=== PATIENT | male | born 1965 | race Caucasian/White ===

== ENCOUNTER 2019-04-01 18:14 | Emergency (ER) | payer MEDICAID ==
[~2019-04-01] VITALS: Ht 170.2 cm; Wt 57.2 kg
[2019-04-01 18:57] VITALS: BP 147/93
[2019-04-01] MEDS ORDERED: ACETAMINOPHEN EXTRA STRENGTH 500 MG TAB PO ONE (19:00)
[2019-04-01] MEDS ORDERED: DICYCLOMINE HCL LIQUID 20 MG, ALUMINUM HYD/MAG/SIMETHICONE 30 ML, LIDOCAINE VISCOUS 2% ... PO ONE ×3 (19:25)
[2019-04-01] MEDS ORDERED: DICYCLOMINE HCL LIQUID 10 MG/5 ML UDC ONE (19:57)
[2019-04-01] MEDS ORDERED: LIDOCAINE VISCOUS 2% 20 ML UDC ONE (19:57)
[2019-04-01] MEDS ORDERED: ALUMINUM HYD/MAG/SIMETHICONE 30 ML UDC ONE (19:57)
--- NOTE | 2019-04-01 20:04 | NUR ---
C/O EPIGASTRIC PAIN X YESTERDAY. RATES PAIN 10/10 AND DECSRIBES IT BURNING. ABD IS ROUND, SOFT, TNENDERNESS TO TOUCH ON EPIGASTRIC REGION. VSS. VOMITTING (5X), DIARRHEA. A & O X4. PT ALSO STATES HE BODY ACHES. NKA. NO PMH.
[2019-04-01 20:38] LABS: BASOPHILS # (AUTO) 0.1 K/uL (0.00-0.22); BASOPHILS % (AUTO) 0.9 % (0.0-2.0); HEMATOCRIT 45.4 % (36-52); HEMOGLOBIN 15.2 g/dL (12.0-18.0); LYMPHOCYTES # (AUTO) 1.1 K/uL (2.0-11.5); LYMPHOCYTES % (AUTO) 17.6 % (20.5-51.1); MEAN CORPUSCULAR HEMOGLOBIN 32 pg (27-31); MEAN CORPUSCULAR HGB CONC 34 g/dL (33-37); MEAN CORPUSCULAR VOLUME 95.9 fL (80-94); MONOCYTES # (AUTO) 0.6 K/uL (0.8-1.0); MONOCYTES % (AUTO) 8.6 % (1.7-9.3); NEUTROPHILS # (AUTO) 4.6 K/uL (1.8-7.7); NEUTROPHILS % (AUTO) 72.9 % (42.2-75.2); PLATELET COUNT (AUTO) 289 K/uL (140-450); RED BLOOD CELL COUNT(AUTO) 4.73 MIL/uL (4.20-6.10); RED CELL DISTRIBUTION WIDTH 12.9 % (11.6-13.7); WHITE BLOOD COUNT (AUTO) 6.4 K/uL (4.8-10.8)
[2019-04-01 20:51] LABS: BARBITURATE, URINE NEG. ng/ml (NEG <=200); BENZODIAZEPINE, URINE NEG. ng/mL (NEG <=200); CANNABINOID, URINE NEG. ng/mL (NEG <=50); COCAINE, URINE NEG. ng/mL (NEG <=300); OPIATE, URINE NEG. ng/mL (NEG <=2000); PHENCYCLIDINE SCREEN,URINE NEG. ng/mL (NEG <=25)
[2019-04-01 20:51] LABS: ALBUMIN 4.1 g/dL (3.4-5.0); ANION GAP 12.3 (8-16); CARBON DIOXIDE 23.5 mmol/L (21-32); CREATININE 0.9 mg/dL (0.6-1.3); POTASSIUM 3.8 mmol/L (3.5-5.1); TOTAL BILIRUBIN 1.3 mg/dL (0.0-1.0)
[2019-04-01 21:29] VITALS: BP_SYST 147
[2019-04-01 21:30] VITALS: BP_DIAS 93
--- NOTE | 2019-04-01 21:30 | NUR ---
Patient discharged with v/s stable. Written and verbal after care instructions ABOUT ABDOMINAL PAIN AND DIET FOR PEPTIC ULCER DISEASE given and explained. Patient alert, oriented and verbalized understanding of instructions. Ambulatory with steady gait. All questions addressed prior to discharge. ID band removed. Patient advised to follow up with PMD. Rx of MYLANTA given. Patient educated on indication of medication including possible reaction and side effects. Opportunity to ask questions provided and answered.
== END 2019-04-01 21:30 | disposition home or self-care (01) ==
LOC: MED 18:14
DX: R10.9 Unspecified abdominal pain (principal); R11.2 Nausea with vomiting, unspecified; R19.7 Diarrhea, unspecified; F17.210 Nicotine dependence, cigarettes, uncomplicated; Z86.73 Personal history of transient ischemic attack (TIA), and cerebral infarction without residual deficits; Z71.6 Tobacco abuse counseling
CPT/HCPCS: 36415; 80053; 80305; 83690; 85025; 99283

== ENCOUNTER 2019-04-03 16:33 | Emergency (ER) | payer MEDICAID ==
[~2019-04-03] VITALS: Ht 170.2 cm; Wt 59.4 kg
[2019-04-03 16:40] VITALS: BP 148/111
--- NOTE | 2019-04-03 16:44 | NUR ---
PATIENT AMBULATED WITH STEADY GAIT TO BED 3.
[2019-04-03] MEDS ORDERED: NACL 0.9% 1,000 ML IV SCH (16:50)
[2019-04-03] MEDS ORDERED: ONDANSETRON 4 MG/2 ML VIAL IVP ONE (16:50)
--- NOTE | 2019-04-03 17:15 | NUR ---
54 Y/O MALE PRESENTS WITH EPIGASTRIC PAIN, N/V/D X3 DAYS. PATIENT CAME TO ER 2 DAYS AGO WITH SYMPTOMS, GIVEN GI COCKTAIL, AND SYMPTOMS PROGRESSED ONCE PATIENT RETURNED HOME. 12/03 EPIGASTRIC PAIN ACCOMPANIED WITH N/V/D. PATIENT COMPLAINS OF CHILLS AND FEVER. NO FEVER PRESENT AT THIS TIME. BOWEL SOUNDS NORMOACTIVE IN ALL QUADRANTS. CAP REFILL <3. AAOX4. RESP EVEN AND UNLABORED. PT DENIES ANY SOB/CP. VSS. NKA
[2019-04-03 17:35] LABS: BASOPHILS % (AUTO) 0.7 % (0.0-2.0); EOSINOPHILS % (AUTO) 0.6 % (0.0-4.0); HEMATOCRIT 44.5 % (36-52); HEMOGLOBIN 14.9 g/dL (12.0-18.0); LYMPHOCYTES # (AUTO) 1.3 K/uL (2.0-11.5); LYMPHOCYTES % (AUTO) 23.1 % (20.5-51.1); MEAN CORPUSCULAR HEMOGLOBIN 32 pg (27-31); MEAN CORPUSCULAR HGB CONC 33 g/dL (33-37); MEAN CORPUSCULAR VOLUME 95.5 fL (80-94); MONOCYTES # (AUTO) 0.6 K/uL (0.8-1.0); MONOCYTES % (AUTO) 10.2 % (1.7-9.3); NEUTROPHILS # (AUTO) 3.7 K/uL (1.8-7.7); NEUTROPHILS % (AUTO) 65.4 % (42.2-75.2); PLATELET COUNT (AUTO) 246 K/uL (140-450); RED BLOOD CELL COUNT(AUTO) 4.66 MIL/uL (4.20-6.10); RED CELL DISTRIBUTION WIDTH 12.8 % (11.6-13.7); WHITE BLOOD COUNT (AUTO) 5.6 K/uL (4.8-10.8)
[2019-04-03 17:52] LABS: PROTHROMBIN TIME 10.4 secs (10.8-13.4)
[2019-04-03 18:03] LABS: ALBUMIN 3.9 g/dL (3.4-5.0); ANION GAP 13.4 (8-16); CARBON DIOXIDE 24.1 mmol/L (21-32); CREATININE 0.8 mg/dL (0.6-1.3); POTASSIUM 3.5 mmol/L (3.5-5.1)
[2019-04-03 18:23] LABS: APPEARANCE,URINE CLEAR (CLEAR); BILIRUBIN,URINE NEGATIVE (NEGATIVE); BLOOD, URINE NEGATIVE (NEGATIVE); COLOR,URINE YELLOW (YELLOW); LEUKOCYTE ESTERASE ,URINE NEGATIVE (NEGATIVE); NITRITE, URINE NEGATIVE (NEGATIVE); UGLUCOSE NEGATIVE (NEGATIVE)
[2019-04-03] MEDS ORDERED: NACL 0.9% 1,000 ML IV ONE (18:25)
[2019-04-03 18:47] VITALS: BP 148/111
--- NOTE | 2019-04-03 18:48 | NUR ---
Patient discharged with v/s stable. Written and verbal after care instructions given and explained. Patient alert, oriented and verbalized understanding of instructions. Ambulatory with steady gait. All questions addressed prior to discharge. ID band removed. Patient advised to follow up with PMD. Rx of AMBIEN, MIRALAX, ZOFRAN, MINERAL OIL given. Patient educated on indication of medication including possible reaction and side effects. Opportunity to ask questions provided and answered.
== END 2019-04-03 18:48 | disposition home or self-care (01) ==
LOC: MED 16:33
DX: K59.00 Constipation, unspecified (principal); R11.2 Nausea with vomiting, unspecified; Z86.73 Personal history of transient ischemic attack (TIA), and cerebral infarction without residual deficits
CPT/HCPCS: 36415; 70450; 71045; 74176; 80053; 81003; 83605; 83880; 84484; 85025; 85610; 85730; 87040; 87086; 93005; 96361; 96374; 99284; J2405; Q0092; J7030

== ENCOUNTER 2020-01-06 06:10 | Emergency (ER) | payer MEDICAID ==
[~2020-01-06] VITALS: Ht 167.6 cm; Wt 57.2 kg
[2020-01-06 06:23] VITALS: BP 113/82
--- NOTE | 2020-01-06 06:59 | NUR ---
PT TAKEN TO XRAY VIA WHEELCHAIR.
--- NOTE | 2020-01-06 07:07 | NUR ---
PT BACK FROM CT VIA WHEELCHAIR.
--- NOTE | 2020-01-06 07:19 | NUR ---
REPORT GIVEN TO CHAVA HAWTHORNE FOR CONTINUITY OF CARE.
[2020-01-06] MEDS ORDERED: NACL 0.9% 1,000 ML IV ONE (07:35)
--- NOTE | 2020-01-06 07:55 | NUR ---
CONSENT SIGNED FOR CT WITH CONTRAST
--- NOTE | 2020-01-06 07:57 | NUR ---
PT WITH POOR VENOUS ACCESS. "I HAVE NO VEINS. I LAST USED THIS MORNING AND I HAD TO SKIN POP". LAB AT BEDSIDE ATTEMPTING TO DRAW LABS.
[2020-01-06 08:18] LABS: BASOPHILS % (AUTO) 0.4 % (0.0-2.0); EOSINOPHILS # (AUTO) 0.1 K/uL (0-0.4); EOSINOPHILS % (AUTO) 3.5 % (0.0-4.0); HEMOGLOBIN 12.8 g/dL (12.0-18.0); LYMPHOCYTES % (AUTO) 23.9 % (20.5-51.1); MEAN CORPUSCULAR HEMOGLOBIN 32 pg (27-31); MEAN CORPUSCULAR HGB CONC 34 g/dL (33-37); MEAN CORPUSCULAR VOLUME 95.5 fL (80-94); MONOCYTES # (AUTO) 0.5 K/uL (0.8-1.0); MONOCYTES % (AUTO) 11.8 % (1.7-9.3); NEUTROPHILS # (AUTO) 2.6 K/uL (1.8-7.7); NEUTROPHILS % (AUTO) 60.4 % (42.2-75.2); PLATELET COUNT (AUTO) 202 K/uL (140-450); RED BLOOD CELL COUNT(AUTO) 3.98 MIL/uL (4.20-6.10); RED CELL DISTRIBUTION WIDTH 12.7 % (11.6-13.7); WHITE BLOOD COUNT (AUTO) 4.3 K/uL (4.8-10.8)
--- NOTE | 2020-01-06 08:53 | NUR ---
TO CT VIA [facility]
--- NOTE | 2020-01-06 08:53 | NUR ---
Katherine neri in [facility] - 01/06/20 at [address] [facility]
--- NOTE | 2020-01-06 09:05 | NUR ---
RETURNED FROM CT
[2020-01-06 09:12] LABS: ALBUMIN 3.3 g/dL (3.4-5.0); CARBON DIOXIDE 25.2 mmol/L (21-32); POTASSIUM 4.2 mmol/L (3.5-5.1); TOTAL BILIRUBIN 0.5 mg/dL (0.0-1.0)
[2020-01-06 09:17] LABS: PROTHROMBIN TIME 10.1 secs (10.8-13.4)
[2020-01-06 09:46] LABS: CREATININE 0.9 mg/dL (0.6-1.3)
[2020-01-06 10:41] VITALS: BP 113/82
== END 2020-01-06 10:35 | disposition home or self-care (01) ==
LOC: MED 06:10
DX: S16.1XXA Strain of muscle, fascia and tendon at neck level, initial encounter (principal); F11.90 Opioid use, unspecified, uncomplicated; F17.210 Nicotine dependence, cigarettes, uncomplicated; F12.90 Cannabis use, unspecified, uncomplicated; I63.9 Cerebral infarction, unspecified; X58.XXXA Exposure to other specified factors, initial encounter; Y93.89 Activity, other specified; Y92.89 Other specified places as the place of occurrence of the external cause; Y99.8 Other external cause status
CPT/HCPCS: 36415; 72040; 72125; 72128; 80053; 83605; 85025; 85610; 85730; 86140; 87040; 93005; 96360; 99285; J7030